=== PATIENT | female | born 1995 | race Caucasian/White ===

== ENCOUNTER 2017-09-02 02:42 | Emergency (ER) | payer SELFPAY ==
[~2017-09-02] VITALS: Ht 157.5 cm; Wt 49.9 kg
[~2017-09-02 02:42] MED LIST: DICL75TA2 PO; KETO75CA PO
[2017-09-02] MEDS ORDERED: LIDOCAINE 1% INJ 20 ML 20 ML VIAL INJ ONE (03:00)
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
[2017-09-02 03:55] VITALS: BP 95/61
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
== END 2017-09-02 03:55 | disposition home or self-care (01) ==
LOC: EDUNIT# 02:42 → ER 02:45
DX: S01.01XA Laceration without foreign body of scalp, initial encounter (principal); S06.0X1A Concussion with loss of consciousness of 30 minutes or less, initial encounter; R40.2142 Coma scale, eyes open, spontaneous, at arrival to emergency department; R40.2252 Coma scale, best verbal response, oriented, at arrival to emergency department; R40.2362 Coma scale, best motor response, obeys commands, at arrival to emergency department; Z87.81 Personal history of (healed) traumatic fracture; Z80.0 Family history of malignant neoplasm of digestive organs; Z87.2 Personal history of diseases of the skin and subcutaneous tissue; Y04.8XXA Assault by other bodily force, initial encounter
CPT/HCPCS: 12002; 70450; 72125

== ENCOUNTER → 2018-09-11 | Outpatient (CLI) | payer OTHER ==
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
== END ==
LOC: RAD 15:23
PROVIDERS: ATTEND Nurse Practitioner
DX: M79.662 Pain in left lower leg (principal); Z87.81 Personal history of (healed) traumatic fracture
CPT/HCPCS: 73590